=== PATIENT | female | born 1990 ===

== ENCOUNTER 2017-12-15 06:29 | Inpatient (IN) | payer OTHER ==
[2017-12-15 06:39] VITALS: BMI 19.7
[2017-12-15] MEDS ORDERED: Oxytocin 30 units/LR 500ML 30 U/500 ML BAG IV ONE (07:25)
[2017-12-15] MEDS ORDERED: Cefepime IV 1 gm in Dextrose 1 GM/50 ML BAG IVPB ONE (07:26)
[2017-12-15] MEDS: Lactated Ringer's 1,000 ML IV ONE ×2 (07:30→17:12)
[2017-12-15] MEDS ORDERED: Morphine 5 mg/10 ml preservative-free Inj(Duramorph) ONE (07:37)
[2017-12-15] MEDS ORDERED: cefOXitin IV 1 gm in Dextrose 1 GM/50 ML BAG IVPB ONE (07:45)
[2017-12-15 07:53] LABS: BASO % 0.5 % (0.0-2.0); EOS % 0.6 % (0.0-4.0); HEMOGLOBIN 12.8 g/dL (12.0-16.0); LYMPH # 1.2 K/uL (1.0-4.3); LYMPH % 16.7 % (20.0-40.0); MEAN CELL VOLUME 104.2 fl (81.0-99.0); MEAN CORPUSCULAR HGB CONC 34.5 g/dL (33.0-37.0); MEAN PLATELET VOLUME 9.5 fl (7.2-11.7); MONO # 0.4 K/uL (0.0-0.8); MONO % 5.9 % (0.0-10.0); NEUT # 5.2 K/uL (1.8-7.0); NEUT % 76.3 % (50.0-75.0); RBC 3.56 Mil/uL (3.80-5.20); RED CELL DISTRIBUTION WIDTH 12.4 % (11.5-14.5); WHITE BLOOD COUNT 6.9 K/uL (4.8-10.8)
[2017-12-15] MEDS ORDERED: DiphenhydrAMINE 50 mg/ml Inj IVP PRN ×2 (09:39→17:10)
--- NOTE | 2017-12-15 10:04 | OBADHP ---
Datetime: 12/15/2017 09:57 Admit Comment, IP Provider: iup at term previous section admitted for repeat section uneventful pren atal course Pelvic Type - PN: Adequate Extremities - PN: Normal Abdomen - PN: Normal Back - PN: Normal Breast - PN: Normal Lungs - PN: Normal Heart - PN: Normal Thyroid - PN: Normal Neurologic - PN: Normal HEENT - PN: Normal General - PN: Normal Presentation-Admit: Vertex FHR - Baseline A Provider: 150 Membranes, Provider: Intact Contraction Comments Provider: irregular Gestation - Est Wks by US: 39+ Vital Signs Provider: Reviewed; Within Normal Limits IP Chief Complaint: Uterine contractions NICHD Variability Prov Fetus A: Moderate 6-25bpm NICHD Accel Fetus A IP Provider: 10X10 FHR Category Provider Fetus A: Category I NICHD Decel Fetus A IP Provider: None Dilatation, Provider: 0 Effacement, Provider: 0 Station, Provider: 3 Genitourinary Exam: Normal DTRs - PN: Normal EGA AdmitDate IP: 39.6 IP Adm Impression: Term, intrauterine IP Admit Plan: Admit to unit; Initiate Section protocol
--- NOTE | 2017-12-15 10:23 | OBDS ---
DELIVERY PERSONNEL Delivery Doctor: Nereyda Correa MD Set Up And Charger: Kelli Gerard RN Anesthesiologist: Dr. Childers MATERNAL INFORMATION Delivery Anesthesia: Spinal Estimated Blood Loss (ml): 800 Maternal Complications: None Provider Comments: delivery of live baby boy 9/9 clear fluid cord with [address] tubes and ovaries intact LABOR SUMMARY EDC: 12/16/2017 00:00 No. Babies in Womb: 1 Attempted: No LABOR INFORMATION Reason for Induction: Not Applicable Oxytocin: N/A Group B Beta Strep: Negative Antibiotics # of Doses: 1 Steroids Given: None Reason Steroids Not Administered: Not Applicable MEMBRANES Membranes Rupture Method: Artificial Rupture of Membranes: 12/15/2017 09:08 Length of Rupture (hrs): 0.00 Amniotic Fluid Color: Light Meconium Amniotic Fluid Amount: Moderate Amniotic Fluid Odor: Normal STAGES OF LABOR Stage 3 hrs: 0 Stage 3 min: 1 CSECTION DELIVERY Primary Indication: Repeat Elective CSection Urgency: Elective CSection Incidence: Repeat Labor: No Labor Elective: Elective CSection Incision: Lower Uterine Transverse BABY A INFORMATION Infant Delivery Date/Time: 12/15/2017 09:08 Method of Delivery: Born in Route : No : N/A Forceps: N/A Vacuum Extraction: N/A Shoulder Dystocia : No SHOULDER DYSTOCIA BABY A Delivery Date/Time: 12/15/2017 09:08 PRESENTATION/POSITION BABY A Presentation: Compound Cephalic Presentation: Vertex Breech Presentation: N/A PLACENTA INFORMATION BABY A Placenta Delivery Time : 12/15/2017 09:09 Placenta Method of Delivery: Expressed Placenta Status: Delivered SCORES BABY A Heart Rate 1 min: >100 bpm Resp Effort 1 min: Good Cry Reflex Irritability 1 min: Cough or Sneeze or Pulls Away Muscle Tone 1 min: Active Motion Color 1 min: Body [place], Extremities Blue Resuscitation Effort 1 min: N/A SCORE 1 MIN: 9 Heart Rate 5 min: >100 bpm Resp Effort 5 min: Good Cry Reflex Irritability 5 min: Cough or Sneeze or Pulls Away Muscle Tone 5 min: Active Motion Color 5 min: Body [place], Extremities Blue Resuscitation Effort 5 min: N/A SCORE 5 MIN: 9 INFORMATION BABY A Gestational Age at Delivery: 39.6 Gestational Status: Term Outcome : Liveborn Condition : Stable Infant Sex: Male IDENTIFICATION/MEDS BABY A ID Band Number: [id number] ID Band Location: Left Leg; Left Arm WEIGHT/LENGTH BABY A Infant Birthweight (gms): 3410 Weight (lb): 7 Infant Weight (oz): 8 CORD INFORMATION BABY A No. Cord Vessels: 3 Nuchal Cord : N/A Cord Blood Taken: Yes Infant Suction: Mouth; Nose ASSESSMENT BABY A Complications: Meconium Physical Findings at Delivery: Within Normal Limits Infant Respirations: Appears Normal Molding Fitter/ALS Called : No Care By: Brenda Newman Transferred To: Remains with Mother
[2017-12-16 07:16] LABS: BASO % 0.4 % (0.0-2.0); EOS % 0.4 % (0.0-4.0); HEMOGLOBIN 11.7 g/dL (12.0-16.0); LYMPH # 0.9 K/uL (1.0-4.3); LYMPH % 9.7 % (20.0-40.0); MEAN CELL VOLUME 104.9 fl (81.0-99.0); MEAN CORPUSCULAR HEMOGLOBIN 36.6 pg (27.0-31.0); MEAN CORPUSCULAR HGB CONC 34.8 g/dL (33.0-37.0); MEAN PLATELET VOLUME 9.2 fl (7.2-11.7); MONO # 0.5 K/uL (0.0-0.8); MONO % 4.9 % (0.0-10.0); NEUT # 8.2 K/uL (1.8-7.0); NEUT % 84.6 % (50.0-75.0); PLATELET COUNT 170 K/uL (130-400); RBC 3.19 Mil/uL (3.80-5.20); RED CELL DISTRIBUTION WIDTH 12.3 % (11.5-14.5); WHITE BLOOD COUNT 9.7 K/uL (4.8-10.8)
[2017-12-16] MEDS: Multivitamin With Minerals Tab PO SCH (08:15)
[2017-12-16 08:39] LABS: BANDS 2 % (0-2); LYMPHOCYTE 11 % (20-50); MONOCYTE 5 % (0-10); NEUTROPHIL 82 % (42-75); PLATELET ESTIMATE NORMAL (NORMAL); TOTAL CELLS COUNTED 100
--- NOTE | 2017-12-16 08:40 | OBPPN ---
Datetime: 12/16/2017 08:33 PP Pain Prov: Within normal limits PP Nausea Prov: Denies PP Flatus Prov: Yes PP Breasts Prov: Normal PP Heart Prov: Normal PP Lungs Prov: Normal PP Abdomen/Uterus Prov: Normal PP Lochia Prov: Normal PP Vulva/Perineum Prov: Normal PP CVA Tenderness Prov: Normal PP Extremities Prov: Normal PP Progress Prov: Normal PP Comments Phys Exam Prov: Abd: Soft, NT. BS- present UT- Firm Incision: Clean and dry PP Impression Prov: Normal progression PP Plan Prov: Continue present management PP Impression Other Prov: S/P Repeat Section PP Progress Note Prov: Pt reports feeling well. Ambulating, tolerating po and pain appropriate to in cision. O: Vitals BP- 96/52, RR -64 Chest Clinically clear Abd: Soft, Incision: Clean and dry Assessment : S/P repeat C/S, POD #1 Clinically Stable. Plan: Continue care Encourage ambulation. Vital Signs Provider PP: Reviewed
[2017-12-16] MEDS ORDERED: Multivitamin With Minerals Tab PO SCH ×3 (09:00)
--- NOTE | 2017-12-16 13:35 | OBPPN ---
Datetime: 12/16/2017 13:30 PP Pain Prov: Within normal limits PP Nausea Prov: Denies PP Flatus Prov: Yes PP BM Prov: No PP Breasts Prov: Normal PP Heart Prov: Normal PP Lungs Prov: Normal PP Abdomen/Uterus Prov: Normal PP Lochia Prov: Normal PP Vulva/Perineum Prov: Normal PP CVA Tenderness Prov: Normal PP Extremities Prov: Normal PP C/S Incision Prov: Normal PP Progress Prov: Normal PP Impression Prov: Normal progression PP Plan Prov: Continue present management PP Progress Note Prov: stable pod1 continue present care advance diet as tolerated ,kat fisher may shower oob wit assistance IP PP Procedures: None Vital Signs Provider PP: Reviewed; Within Normal Limits
[2017-12-16] MEDS ORDERED: Lansinoh for Breast Feeding Mothers TP ONE (18:03)
--- NOTE | 2017-12-17 01:51 | OP ---
PROCEDURE DATE: 12/15/2017 PREOPERATIVE DIAGNOSIS: Term , previous , for a repeat . POSTOPERATIVE DIAGNOSIS: Term , previous , for a repeat . SURGEON: Aaron Correa M.D. SUPERVISOR WINTER: Dr. Chaudhry. TYPE OF ANESTHESIA: Spinal anesthesia. ANESTHESIA ADMINISTERED BY: Dr. Childers. PROCEDURE: Repeat low transverse . FINDINGS: Term size uterus, live baby boy. Apgars 9 and 9. Clear fluid, cord with three-vessels, placenta, anterior tubes and ovaries within normal limits. DESCRIPTION OF PROCEDURE: With the patient in the supine position, under spinal anesthesia, the patient was prepped and draped in the usual sterile manner. A Pfannenstiel skin incision was made and taken off the fascia in layers. The fascia was incised and extended bilaterally. Fascia was incised and from the muscle by sharp and blunt dissection. After this was done, peritoneum was grasped, incised vertically. Upon entering the abdominopelvic cavity, paracolic gutters were packed with wet laps, pushing the bowel away from the operative field. After this was done, bladder flap was established and low transverse incision was made in the uterus extending bilaterally covering upwards. Baby was removed without any problem and given to it architecture analyst who resuscitated. After this was done, the placenta was removed and intact. The uterus was exteriorized, clean, and closed with 2-0 Vicryl running to locking stitch maintaining hemostasis. After that was done, the wet laps were removed from the paracolic gutter. Pelvic cavity was irrigated until clean. Following this, uterus was repositioned. The peritoneum was grasped and closed with 1 Vicryl. Muscles approximated with 1 Vicryl. The fascia was then closed with 2-0 plain, starting at each end and finishing in the midline. After this was done, subcutaneous layer was closed with 2-0 plain, and the skin was closed in a subcuticular fashion with 3-0 Prolene. The patient tolerated the procedure well and was in satisfactory condition on her way to recovery room. Dr. Chaudhry was present from the beginning of the surgery and helped in preparation of the surgery. He did his side, and I did my side when opening the fascia and also in closing; he assisted also in and opening the peritoneum, he assisted also in closing of the uterus and closing the fascia. He was present from the beginning of the surgery to the end of the surgery. Aaron Correa MD
[2017-12-17] MEDS: Multivitamin With Minerals Tab PO SCH (08:54)
--- NOTE | 2017-12-17 11:35 | OBPPN ---
Datetime: 12/17/2017 11:31 PP Pain Prov: Within normal limits PP Nausea Prov: Denies PP Flatus Prov: Yes PP BM Prov: No PP Breasts Prov: Normal PP Heart Prov: Normal PP Lungs Prov: Normal PP Abdomen/Uterus Prov: Normal PP Lochia Prov: Normal PP Vulva/Perineum Prov: Normal PP CVA Tenderness Prov: Normal PP Extremities Prov: Normal PP C/S Incision Prov: Normal PP Progress Prov: Normal PP Impression Prov: Normal progression PP Plan Prov: Continue present management PP Progress Note Prov: stable pod 2 continue present care IP PP Procedures: None Vital Signs Provider PP: Reviewed; Within Normal Limits
[2017-12-18] MEDS: Multivitamin With Minerals Tab PO SCH (08:42)
--- NOTE | 2017-12-18 10:03 | OBPPN ---
Datetime: 12/18/2017 09:58 PP Pain Prov: Within normal limits PP Nausea Prov: Denies PP Flatus Prov: Yes PP BM Prov: Yes PP Breasts Prov: Normal PP Heart Prov: Normal PP Lungs Prov: Normal PP Abdomen/Uterus Prov: Normal PP Lochia Prov: Normal PP Vulva/Perineum Prov: Normal PP CVA Tenderness Prov: Normal PP Extremities Prov: Normal PP C/S Incision Prov: Normal PP Progress Prov: Normal PP Impression Prov: Normal progression PP Plan Prov: Continue present management; Discharge PP Progress Note Prov: stable pod3 continue present care for discharge today IP PP Procedures: None Vital Signs Provider PP: Reviewed; Within Normal Limits
--- NOTE | 2017-12-18 10:06 | OBDCSUM ---
Datetime: 12/18/2017 10:02 Discharged to, Provider: Home Follow up at, Provider: Disch Instr Activity: Bedrest; May be up to bathroom; May be up for meals; May Shower Disch Instr Diet: Regular Discharge Instructions, Provider: Routine instructions given Discharge Diagnosis, Provider: Term Delivered Follow up in weeks, Provider: 11week in office Disch Referrals: None Disch Activity Restrictions: No exercising; No lifting; No driving; Minimize walking; Minimize stair -climbing; No sexual activity; Nothing in vagina - [place], tampons, douche Discharge Comment, Provider: dc home today call office if any problems Contraception after Delivery: Undecided
[2017-12-18 18:57] VITALS: BP 120/70; PULSE 71; RESP 20; TEMP 98.3; O2SAT 98
== END 2017-12-18 13:55 | disposition home or self-care (01) | DRG 766 ==
LOC: H.EROB2 06:29 → H.L&D 06:44 → H.OB/GYN 13:39
PROVIDERS: ADMIT Obstetrics & Gynecology; ATTEND Obstetrics & Gynecology
PROC: 10D00Z1 Extraction of Products of Conception, Low, Open Approach (ICD-10-PCS; principal; 2017-12-15)
DX: O34.211 Maternal care for low transverse scar from previous cesarean delivery (principal); O77.0 Labor and delivery complicated by meconium in amniotic fluid; Z37.0 Single live birth; Z3A.39 39 weeks gestation of pregnancy; Z88.2 Allergy status to sulfonamides